=== PATIENT | male | born 1965 | race Caucasian/White ===

== ENCOUNTER 2016-07-13 15:41 | Emergency (ER) | payer OTHER ==
[~2016-07-13 15:41] MED LIST: NO MEDS; TRAMADOL HCL50 MG PO
[2016-07-27] MEDS ORDERED: GLUCOSAMINE HC500 M1 PO (09:34)
[2016-07-27] MEDS ORDERED: FISH OIL 11000 MG/CA PO (09:34)
== END 2016-07-13 17:53 ==
LOC: EDMED 15:41
DX: S81.812A Laceration without foreign body, left lower leg, initial encounter (principal); I10 Essential (primary) hypertension; F17.210 Nicotine dependence, cigarettes, uncomplicated; W45.8XXA Other foreign body or object entering through skin, initial encounter; Y92.69 Other specified industrial and construction area as the place of occurrence of the external cause; Y99.0 Civilian activity done for income or pay